=== PATIENT | female | born 1935 | race Caucasian/White ===

== ENCOUNTER 2018-02-13 13:44 | Emergency (ER) | payer OTHER ==
[2018-02-13 13:59] VITALS: BP 152/46; PULSE 58; TEMP 97.9; BMI 22.1
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
== END 2018-02-13 14:43 | disposition home or self-care (01) ==
LOC: JER 13:44 → JERFT 13:44
DX: S63.622A Sprain of interphalangeal joint of left thumb, initial encounter (principal); V86.41XA Person injured while boarding or alighting from ambulance or fire engine, initial encounter; Y92.488 Other paved roadways as the place of occurrence of the external cause; Y93.89 Activity, other specified; Y99.8 Other external cause status; I10 Essential (primary) hypertension; E78.00 Pure hypercholesterolemia, unspecified
CPT/HCPCS: 73130-TC-LR-FY; 99281-25